=== PATIENT | female | born 1975 | race Caucasian/White ===

== ENCOUNTER 2017-02-27 09:55 | Outpatient (CLI) | payer OTHER ==
--- NOTE | 2017-02-27 12:24 | MMO ---
BILATERAL SCREENING MAMMOGRAMS: Comparison is made to the prior studies of 2014 and 2016. Interpreted with computer-aided detection. There is a heterogeneously dense glandular pattern. No evidence of mass, distortion, or suspicious calcification. No evidence of interval change. Recommend 1-year followup. IMPRESSION: BIRADS 1: Negative Routine annual screening mammography (for women over age 40) POS: KELLY
== END 2017-02-27 09:56 | disposition home or self-care (01) ==
LOC: SCSMAMMO 09:55
PROVIDERS: ATTEND Family Medicine
DX: Z12.31 Encounter for screening mammogram for malignant neoplasm of breast (principal)
CPT/HCPCS: 77067; G0202

== ENCOUNTER 2018-05-16 14:08 | Outpatient (CLI) | payer OTHER ==
--- NOTE | 2018-05-16 15:57 | MMO ---
BILATERAL SCREENING MAMMOGRAM: HISTORY: Screening. COMPARISON: Mammogram from 2017 and 2016. TECHNIQUE: Bilateral screening CC and MLO mammograms are performed with computer aided detection. FINDINGS: The breasts are heterogeneously dense, which may obscure small masses. No suspicious mass, sap bi architect ural distortion, or microcalcifications. IMPRESSION: BI-RADS 1-Negative. Continued screening recommended. POS: [facility]
== END 2018-05-16 14:09 | disposition home or self-care (01) ==
LOC: SCSMAMMO 14:08
PROVIDERS: ATTEND Family Medicine
DX: Z12.31 Encounter for screening mammogram for malignant neoplasm of breast (principal)
CPT/HCPCS: 77067